=== PATIENT | female | born 1985 | race Caucasian/White ===

== ENCOUNTER 2023-07-09 15:19 | Outpatient (CLI) | payer MEDICAID ==
[~2023-07-09] VITALS: Ht 165.1 cm; Wt 84.8 kg
[2023-07-09 15:55] VITALS: PULSE 120; RESP 18; O2SAT 98
[2023-07-09] MEDS ORDERED: albuterol 2.5 MG/3 ML nebule NEB ONE (15:55)
== END 2023-07-09 23:59 | disposition home or self-care (01) ==
LOC: RT 15:19
PROVIDERS: ATTEND Physician Assistant
DX: J44.9 Chronic obstructive pulmonary disease, unspecified (principal); R94.2 Abnormal results of pulmonary function studies
CPT/HCPCS: 94060; 94760